=== PATIENT | male | born 1980 | race Caucasian/White ===

== ENCOUNTER 2017-12-08 15:29 | Emergency (ER) | payer OTHER ==
[2017-12-08 15:56] VITALS: BP 129/84
[2017-12-08] MEDS ORDERED: cefTRIAXone VIAL(*) 250 MG VIAL IM ONE (16:18)
--- NOTE | 2017-12-08 16:18 | UC ---
Throat Pain/Nasal Benny HPI - HPI Summary HPI Summary: 1. Pt c/o sore throat, fever, X 3 days. 2. C/o of penile discharge that pt states is yellow, purulent in the morning and clears after first morning void. Pt is sexually active and reports possible exposure to STD's. - History of Current Complaint Hx Obtained From: Patient Onset/Duration: Sudden Onset, Lasting Days, Still Present Severity: Moderate Pain Intensity: 0 Associated Signs & Symptoms: Positive: Dysphagia, Fever - Epiglottits Risk Factors Epiglottis Risk Factors: Negative <Nadia Perez NP - Last Filed: 12/08/17 16:54> <Clayton Yeh - Last Filed: 12/08/17 18:16> - History of Current Complaint Chief Complaint: UCGeneralIllness Stated Complaint: ST/FEVER Time Seen by Provider: 12/08/17 15:56 - Allergies/Home Medications Allergies/Adverse Reactions: Allergies Allergy/AdvReac Type Severity Reaction Status Date / Time No Known Allergies Allergy Verified 12/08/17 15:56 Home Medications: Home Medications Tenofovir/Emtricitab 200/300 * [Truvada 200/300 mg*] 1 tab DAILY 12/08/17 [ History Confirmed 12/08/17] buPROPion SR TAB* [Wellbutrin SR TAB*] 100 mg PO DAILY 12/08/17 [History Confirmed 12/08/17] PMH/Surg Hx/FS Hx/Imm Hx Previously Healthy: Yes Psychological History: Depression - Surgical History Surgical History: Yes Surgery Procedure, Year, and Place: undescended testicle, hernia - Family History Known Family History: Positive: Cardiac Disease - Social History Occupation: Employed Full-time Alcohol Use: Occasionally Substance Use Type: None Smoking Status (MU): Current Some Day Smoker Type: Cigarettes Amount Used/How Often: "SOCIAL SMOKER" Have You Smoked in the Last Year: Yes - Immunization History Most Recent Influenza Vaccination: 2012 Most Recent Tetanus Shot: unknown Most Recent Pneumonia Vaccination: n/a <Nadia Perez NP - Last Filed: 12/08/17 16:54> Review of Systems Constitutional: Fever, Chills, Fatigue Skin: Negative Eyes: Negative ENT: Sore Throat Respiratory: Negative Cardiovascular: Negative Gastrointestinal: Negative Genitourinary: Vaginal/Penile Discharge Motor: Negative Neurovascular: Negative Musculoskeletal: Negative Neurological: Negative Psychological: Negative Is Patient Immunocompromised?: No All Other Systems Reviewed And Are Negative: Yes <Nadia Perez NP Last Filed: 12/08/17 16:54> Physical Exam Triage Information Reviewed: Yes Appearance: Well-Appearing Vital Signs: Initial Vital Signs Temp 98.4 F 12/08/17 15:52 Pulse 79 12/08/17 15:52 Resp 16 12/08/17 15:52 BP 129/84 12/08/17 15:52 Pulse Ox 99 12/08/17 15:52 Vital Signs Reviewed: Yes Eye Exam: Normal ENT Exam: Other ENT: Positive: Pharyngeal erythema, Tonsillar swelling, Tonsillar exudate Dental Exam: Normal Neck exam: Normal Respiratory Exam: Normal Cardiovascular Exam: Normal Musculoskeletal Exam: Normal Neurological Exam: Normal Psychological Exam: Normal Skin Exam: Normal <Nadia Perez NP Last Filed: 12/08/17 16:54> Vital Signs: Initial Vital Signs Temp 98.4 F 12/08/17 15:52 Pulse 79 12/08/17 15:52 Resp 16 12/08/17 15:52 BP 129/84 12/08/17 15:52 Pulse Ox 99 12/08/17 15:52 <Clayton Yeh - Last Filed: 12/08/17 18:16> Diagnostics - Laboratory Diagnostic Studies Completed/Ordered: rapid strep: positive <Nadia Perez NP Last Filed: 12/08/17 16:54> Throat Pain/Nasal Course/Dx - Differential Dx/Diagnosis Differential Diagnosis/HQI/PQRI: Pharyngitis, Tonsillitis Provider Diagnoses: strep throat. urethritis <Nadia Perez NP Last Filed: 12/08/17 16:54> Discharge - Sign-Out/Discharge Documenting (check all that apply): Discharge/Admit/Transfer - Billing Disposition and Condition Condition: STABLE Disposition: Home <Nadia Perez NP Last Filed: 12/08/17 16:54> - Billing Disposition and Condition Condition: STABLE Disposition: Home <Clayton Yeh - Last Filed: 12/08/17 18:16> - Discharge Plan Condition: Stable Disposition: HOME Prescriptions: Fluconazole 100 MG TAB* [Diflucan 100 MG TAB*] 100 mg PO DAILY #2 tab Penicillin VK 500 MG TAB(NF) [Penicillin VK 500 mg Tab] 500 mg PO Q8H #30 tab Patient Education Materials: Nonspecific Urethritis in Men (ED), Strep Throat ( [place]) Forms: *Work Release Referrals: [facility] [Outside] No Primary Care Phys,NOPCP [Primary Care Provider] - Additional Instructions: Per institutional requirements, I have reviewed the chart, however, I was not consulted specifically or made aware of this patient by the above midlevel provider. I did not personally evaluate, interact with , or disposition this patient.
[2017-12-08] MEDS ORDERED: Azithromycin TAB* 250 MG PO ONE (16:20)
[2017-12-08] MEDS ORDERED: Lidocaine 1% MPF* 2 ML VIAL ONE (16:37)
== END 2017-12-08 17:00 | disposition home or self-care (01) ==
LOC: UCCORT 15:29
DX: J02.0 Streptococcal pharyngitis (principal); N34.2 Other urethritis; F32.9 Major depressive disorder, single episode, unspecified; F17.210 Nicotine dependence, cigarettes, uncomplicated
CPT/HCPCS: 81002; 87491; 87591; 87651; 96372; 99212; A9270-GY; G0463; J0696